=== PATIENT | female | born 2000 | race African-American/Black ===

== ENCOUNTER 2023-07-03 16:56 | Emergency (ER) | payer MEDICAID ==
[~2023-07-03] VITALS: Ht 170.2 cm; Wt 68.0 kg
[2023-07-03 17:11] VITALS: O2SAT 100
[2023-07-03 17:34] LABS: CLARITY URINE CLOUDY (CLEAR); COLOR URINE DARK YELLOW (YELLOW); GLUCOSE URINE NEGATIVE (NEGATIVE); KETONES URINE 2+ (NEGATIVE); LEUKOCYTE ESTERASE URINE 2+ (NEGATIVE); NITRITE URINE NEGATIVE (NEGATIVE); OCCULT BLOOD URINE NEGATIVE (NEGATIVE); PROTEIN URINE 1+ (NEGATIVE); SPECIFIC GRAVITY URINE 1.033 (1.005-1.030)
[2023-07-03 17:54] LABS: BACTERIA URINE 3+; RBC URINE 0-2 /hpf (0-2); SQUAMOUS EPITHELIAL CELL URINE 2+ /lpf (RARE/1+)
[2023-07-03 17:55] LABS: TRICHOMONAS URINE FEW
[2023-07-03 17:56] LABS: WBC URINE 15-25 /hpf (0-2)
[2023-07-03 20:36] LABS: BASOPHILS % 0.4 % (0.0-2.0); EOSINOPHILS % 1.2 % (0.0-5.0); HEMATOCRIT. 41.9 % (36.0-48.0); HEMOGLOBIN. 14.1 g/dL (12.0-16.0); LYMPHOCYTES % 17.6 % (20.0-50.0); MEAN CORPUSCULAR HEMOGLOBIN 29.2 pg (28.0-32.0); MEAN CORPUSCULAR HGB CONC 33.7 g/dL (31.0-37.0); MEAN CORPUSCULAR VOLUME 86.7 fL (81.0-99.0); MEAN PLATELET VOLUME 9.7 fl (7.4-10.4); MONOCYTES % 9.1 % (2.0-8.0); NEUTROPHILS % 71.7 % (40.0-76.0); PLATELET 297 x1000/uL (130-400); RED BLOOD CELL COUNT 4.83 mill/uL (4.2-5.4); RED CELL DISTRIBUTION WIDTH 12.7 % (11.6-14.6); WHITE BLOOD COUNT 6.7 x1000/uL (4.5-11.0)
[2023-07-03 20:49] LABS: HCG SCREEN POSITIVE
[2023-07-03 21:03] LABS: ALANINE AMINOTRANSFERASE 13 IU/L (10-49); ALBUMIN 4.4 g/dL (3.2-4.8); ASPARTATE AMINOTRANSFERASE 18 IU/L (<34); B-HCG QUANTITATIVE 116025 mIU/mL (<3); CARBON DIOXIDE 23 mEq/L (21-32); CHLORIDE 102 mEq/L (98-107); CREATININE 0.7 mg/dL (0.6-1.0); GLUCOSE 84 mg/dL (70-105); POTASSIUM 3.5 mEq/L (3.5-5.1); PROTEIN TOTAL 7.7 g/dL (6.0-8.3); SODIUM 133 mEq/L (136-145); UREA NITROGEN BLOOD 6 mg/dL (9-23)
[2023-07-03] MEDS: ONDANSETRON HCL 4MG/2ML INJ IV ONE (21:12)
[2023-07-03] MEDS: CEFTRIAXONE 1GM/50ML 50 ML IV ONE (21:12)
[2023-07-03] MEDS: SODIUM CHLORIDE 0.9% 1,000 ML IV ONE (21:12)
[2023-07-03] MEDS ORDERED: METR-167 MT (22:39)
[2023-07-03] MEDS ORDERED: CEPH500T MT (22:39)
[2023-07-03] MEDS ORDERED: PNV1TABL76 MT (22:41)
[2023-07-03 23:25] VITALS: BP 97/76; PULSE 83; RESP 17; TEMP 97.4
== END 2023-07-03 23:50 | disposition home or self-care (01) ==
LOC: ER 16:56
DX: O21.9 Vomiting of pregnancy, unspecified (principal); O23.31 Infections of other parts of urinary tract in pregnancy, first trimester; E86.0 Dehydration; A59.9 Trichomoniasis, unspecified; Z3A.01 Less than 8 weeks gestation of pregnancy
CPT/HCPCS: 80053; 81003; 81025; 84703; 84702; 83690; 85025; 86850; 86900; 86901; 87086; 36415; 76801; 76817; 96365; 96375; 99285; J0696; J2405; J7030; Z7610 ×3